=== PATIENT | female | born 1950 | race Caucasian/White ===

== ENCOUNTER 2021-09-16 11:20 | Outpatient (CLI) | payer MEDICARE, BC, SELFPAY ==
[2021-09-16 15:19] LABS: Albumin* 3.5 g/dL (3.3-5.0); Chloride* 99 mmol/L (96-114)
[2021-09-16 15:20] LABS: Sodium* 131 mmol/L (135-149)
[2021-09-16 15:22] LABS: Alkaline Phosphatase* 389 U/L (40-150); Aspartate Amino Transferase* 348 U/L (12-35); Bilirubin Total* 2.8 mg/dL (0.1-1.5); Carbon Dioxide* 27 mmol/L (20-32); Creatinine* 0.8 mg/dL (0.5-1.5); Estimated Glomerular Filt Rate 78.24; Total Protein* 5.6 g/dL (6.0-8.3)
[2021-09-16 15:23] LABS: Blood Urea Nitrogen* 13 mg/dL (7-30); Glucose* 221 mg/dL (60-115)
[2021-09-16 17:18] LABS: Alanine Aminotransferase* 226 U/L (4-35)
[2021-09-16 23:54] LABS: Bilirubin Direct* 0.9 mg/dL (0.0-0.5); Lipase* 43 U/L (23-300)
[2021-09-18 16:59] LABS: Hepatitis B Core Antibody, IgM Negative (Negative); Hepatitis B Surface Antigen Negative (Negative); Hepatitis C Antibody by CIA Negative (Negative)
== END 2021-09-16 11:21 | disposition home or self-care (01) ==
PROVIDERS: PCP Internal Medicine; Visit Provider Family Medicine
DX: R53.83 Other fatigue; R79.89 Other specified abnormal findings of blood chemistry; R73.03 Prediabetes; M85.80 Other specified disorders of bone density and structure, unspecified site; E66.9 Obesity, unspecified; E78.5 Hyperlipidemia, unspecified; H40.9 Unspecified glaucoma; R94.5 Abnormal results of liver function studies; Z11.9 Encounter for screening for infectious and parasitic diseases, unspecified
CPT/HCPCS: 80053; 80061; 80074; 82248; 83690; 86618